=== PATIENT | male | born 1995 | race Caucasian/White ===

== ENCOUNTER 2021-05-19 19:43 | Emergency (ER) | payer OTHER ==
[~2021-05-19 19:43] MED LIST: FLEXERIL5 MG PO; HYDROCODON-ACE1 EAC4 PO; IBU600 MG PO; NAPROXEN500 MG PO; PENICILLIN V P500 MG PO
== END 2021-05-19 21:18 | disposition home or self-care (01) ==
LOC: FER 19:43
DX: R41.82 Altered mental status, unspecified (principal)
CPT/HCPCS: 99284